=== PATIENT | male | born 1950 | race Caucasian/White ===

== ENCOUNTER 2020-04-27 07:39 | Outpatient (CLI) | payer OTHER, SELFPAY ==
--- NOTE | 2020-04-27 07:49 | USCV_ITS ---
Francis Brown Age: 69 Gender: M : 1950 Exam Date: 04/27/2020 08:12 Ordering Phys: Le Velazquez MD Technologist: Corrie Chanel [place] [facility] [place]: AAA SCREENING HISTORY: Diameter (cm) AP x Transverse x Length Velocity (cm/s) Waveform Prox Aorta: 2.90 x 2.82 x 96.70 Mid Aorta: 2.24 x 2.44 x 63.60 Distal Aorta: 3.49 x 3.25 x 8.09 95.00 Right Iliac Prox: 1.42 x 1.40 x 66.10 Left Iliac Prox: 1.15 x 1.17 x 70.70 Stent Prox Landing x x Aneurysmal Sac Max x x Lt Lat Sac Dim Rt Lat Sac Dim Stent Dist Landing x x Right Iliac Stent x x Left Iliac Stent x x Right Renal Art Left Renal Art FINDINGS: Moderate diffuse plaques in the abdominal aorta Fusiform dilatation of the distal abdominal aorta CONCLUSIONS Small fusiform aneurysm of the distal abdominal aorta, measuring 3.49 x 3.25 cm. Moderate diffuse plaques in the abdominal aorta. No significant arterial obstruction in the proximal common iliac arteries Slight ectasia of the proximal right common iliac artery No previous studies are available for comparison Dr Aspen Nicole MD [facility] (Electronically Signed) Final Date: 28 April 2020 06:11 S
== END 2020-04-27 07:40 | disposition home or self-care (01) ==
PROVIDERS: PCP Family Medicine; Visit Provider Family Medicine
DX: Z13.6 Encounter for screening for cardiovascular disorders (principal); I71.4 Abdominal aortic aneurysm, without rupture
CPT/HCPCS: 76706

== ENCOUNTER 2020-08-23 09:50 | Outpatient (CLI) | payer OTHER, SELFPAY ==
--- NOTE | 2020-08-23 10:15 | USCV_ITS ---
Francis Brown Age: 69 Gender: M : 1950 Exam Date: 08/23/2020 10:20 Ordering Phys: Laly Fisher MD ([email or web address]) Technologist: Sarah Maynard [place] [facility] [place]ication: DIZZINESS AND GIDDINESS BP: 132 / 78 HR: 49 Rhythm: Sinus Technical Quality: Technically difficult study MEASUREMENTS (Male / Female) Normal Values 2D ECHO LV Diastolic Diameter PLAX 3.8 cm 4.2 - 5.9 / 3.9 - 5.3 cm LV Systolic Diameter PLAX 2.6 cm IVS Diastolic Thickness 1.9 cm 0.6 - 1.0 / 0.6 - 0.9 cm IVS Systolic Thickness 2.0 cm LVPW Diastolic Thickness 1.6 cm 0.6 - 1.0 / 0.6 - 0.9 cm LVPW Systolic Thickness 2.0 cm RV Chamber Size 4.1 cm LVOT Diameter 2.0 cm LV Ejection Fraction 2D Teich 54.4 % LV Ejection Fraction MOD 2C 70.4 % LV Ejection Fraction 2C AL 69.6 % LA Diameter 3.5 cm LA Width 3.5 cm LA Height 4.4 cm RA Width 2.9 cm RA Height 4.8 cm Aorta at Sinotubular Diameter 2.5 cm M-MODE Aortic Annulus Diameter 2.6 cm LA Ao Ratio MM 1.5 MV E Point Septal Separation 0.2 cm DOPPLER AV Peak Velocity 217.0 cm/s LVOT Peak Velocity 206.0 cm/s AV Area Cont Eq vti 2.9 cm squared AV Area Cont Eq pk 3.0 cm squared MV Area PHT 3.5 cm squared Mitral E to A Ratio 0.7 MV E' Velocity 28.0 cm/s Mitral E to MV E' Ratio 4.6 Mitral E to LV E' Lateral Ratio 4.6 Mitral E to LV E' Septal Ratio 4.5 TR Peak Velocity 216.0 cm/s TR Peak Gradient 18.7 mmHg TV Peak E Velocity 43.0 cm/s Right Atrial Pressure 3.0 mmHg Pulmonary Artery Systolic Pressu 21.7 mmHg PV Peak Velocity 164.0 cm/s RV Acceleration Time 0.1 s RV Ejection Time 0.3 s RV AcT/ET 0.4 FINDINGS Left Ventricle Normal left ventricular cavity size. Increased left ventricular wall thickness. Moderate left ventricular hypertrophy. Normal left ventricular systolic function. Left ventricular ejection fraction is estimated at 70-75 %. No regional wall motion abnormalities. Grade I diastolic dysfunction (abnormal relaxation filling pattern), normal to mildly elevated filling pressures. Right Ventricle Normal right ventricular size and systolic function. Right ventricular systolic pressure 21.7 mmHg. Right Atrium Normal right atrial size. Left Atrium Mildly increased left atrial size. Mitral Valve Thickened mitral valve. No mitral valve stenosis. Trace mitral valve regurgitation. Aortic Valve Aortic valve not well visualized. Probably trileaflet aortic valve. Flow acceleration noted in left ventricular outflow tract. Peak velocity through left ventricle outflow tract at rest of 2.2 m/s and peak gradient of 20 mmHg. No aortic valve regurgitation. Tricuspid Valve Structurally normal tricuspid valve. Trace tricuspid valve regurgitation. Pulmonic Valve Pulmonic valve not well visualized. Structurally normal pulmonic valve. No pulmonary valve stenosis. Trace pulmonary valve regurgitation. Pericardium No pericardial effusion. Aorta Normal size aortic root and proximal ascending aorta. CONCLUSIONS 1. Normal left ventricular cavity size. Moderate concentric left ventricular hypertrophy. Normal left ventricular systolic function. Left ventricular ejection fraction is estimated at 70- 75 %. No regional wall motion abnormalities. Grade I diastolic dysfunction (abnormal relaxation filling pattern), normal to mildly elevated filling pressures. 2. Normal right ventricular size and systolic function. 3. Pulmonary artery pressure estimated at 22 mmHg. 4. Flow acceleration noted in left ventricular outflow tract. Peak velocity through left ventricle outflow tract at rest of 2.2 m/s and peak gradient of 20 mmHg. 5. No prior similar studies to compare. Laly Fisher MD (Electronically Signed) Final Date: 31 August 2020 10:01 S
== END 2020-08-23 09:51 | disposition home or self-care (01) ==
PROVIDERS: PCP Family Medicine; Visit Provider Internal Medicine Cardiovascular Disease
DX: I51.7 Cardiomegaly (principal); R42 Dizziness and giddiness
CPT/HCPCS: 93306

== ENCOUNTER → 2021-05-18 10:08 | Outpatient (BNVA) | payer OTHER, SELFPAY | PROVIDERS: PCP Family Medicine; Referring Provider Internal Medicine Cardiovascular Disease; Visit Provider Internal Medicine Cardiovascular Disease | DX: Z20.822 Contact with and (suspected) exposure to COVID-19 (principal) | CPT/HCPCS: 99999 ==

== ENCOUNTER 2021-05-18 10:24 | Outpatient (CLI) | payer OTHER, SELFPAY ==
[2021-05-18 10:43] LABS: Basophils % 0.5 %; Eosinophils # 0.2 10^3/uL (0.0-0.8); Eosinophils % 2.3 %; Hematocrit 44.6 % (42.0-52.0); Lymphocytes # 2.4 10^3/uL (0.8-4.8); Lymphocytes % 37.2 %; Mean Corpuscular HGB Conc 33.6 g/dL (30.0-36.0); Mean Corpuscular Volume 86.1 fl (80-94); Monocytes # 0.6 10^3/uL (0.2-0.9); Monocytes % 8.7 %; Neutrophils # 3.31 10^3/uL (1.8-7.7); Neutrophils % 51.1 %; Nucleated Red Blood Cells % 0 %; Platelet Count 192 10^3/cmm (130-400); Red Blood Count 5.18 10^6/uL (4.1-5.3); White Blood Count 6.5 10^3/uL (4.0-10.0)
[2021-05-18 11:03] LABS: Anion Gap 12.3 (5-19); Blood Urea Nitrogen 12 mg/dL (8-23); Calcium 9.3 mg/dL (8.5-10.5); Carbon Dioxide 27 mmol/L (22-29); Chloride 101 mmol/L (98-107); Glomerular Filtration Rate 74.3 mL/min (90-130); Glucose 93 mg/dL (65-115); Osmolality Calculated 281 mOsm/kg (285-295); Potassium 4.3 mmol/L (3.5-5.1); Sodium 136 mmol/L (136-145)
[2021-05-18 11:13] LABS: INR 1.02 (0.83-1.21); Prothrombin Time (Patient) 13.7 Seconds (12.0-15.1)
[2021-05-18 13:24] LABS: Adenovirus Not Detected (NOT DETECT); Chlamydia Pneumoniae Not Detected (NOT DETECT); Coronavirus 229E,HKU1,NL63,OC4 Not Detected (NOT DETECT); Human Metapneumovirus Not Detected (NOT DETECT); Human Rhinovirus/Enterovirus Not Detected (NOT DETECT); Influenza A Not Detected (NOT DETECT); Influenza A H1 Not Detected (NOT DETECT); Influenza A H1-2009 Not Detected (NOT DETECT); Influenza A H3 Not Detected (NOT DETECT); Influenza B Not Detected (NOT DETECT); Mycoplasma Pneumoniae Not Detected (NOT DETECT); Parainfluenza Virus Type 1 Not Detected (NOT DETECT); Parainfluenza Virus Type 2 Not Detected (NOT DETECT); Parainfluenza Virus Type 3 Not Detected (NOT DETECT); Parainfluenza Virus Type 4 Not Detected (NOT DETECT); Respiratory Syncytial Virus A Not Detected (NOT DETECT); Respiratory Syncytial Virus B Not Detected (NOT DETECT); SARS-COV-2 Not Detected (NOT DETECT)
== END 2021-05-18 10:25 | disposition home or self-care (01) ==
LOC: LAB 10:26
PROVIDERS: PCP Family Medicine; Visit Provider Internal Medicine Cardiovascular Disease
DX: I25.10 Atherosclerotic heart disease of native coronary artery without angina pectoris (principal); R06.02 Shortness of breath; R07.9 Chest pain, unspecified
CPT/HCPCS: 80048; 85025; 85610; 87635

== ENCOUNTER 2021-05-23 05:45 | Outpatient (CLI) | payer OTHER, SELFPAY ==
[2021-05-23] VITALS (20 sets, daily range): BP systolic 118–166; BP diastolic 68–92; PULSE 47–63; RESP 5–28; TEMP 36.6–36.7; O2SAT 93–98; BMI 30.7
--- NOTE | 2021-05-23 06:00 | XACV_ITS ---
Exam Room: 2 Ht: 175 cm Wt: 95 kg BSA: 2.18 m2 Gender: Male : 1950 Any Known Allergies: No known allergies Exam Priority: Routine Procedure(s): Procedure Description: Diagnostic procedure Procedure Description: Left Heart Catheterization Procedure Description: Left ventriculography Procedure Description: Coronary Angiography Procedure Description: Pressure Wire Diagnostic Cath Status: Elective Diagnostic Findings * 70-year-old man with past medical history of coronary artery disease with multiple stents, hypertension, hyperlipidemia and small distal abdominal aortic aneurysm. He was admitted with ST elevation inferolaterally in December 2021 and underwent PCI to distal RCA. He was also noted to have residual high-grade stenosis of mid LAD distal to previously placed stent with plan for staged intervention. Patient continues to have exertional dyspnea and hence decision was made to proceed with cardiac catheterization.. * Normal left main. Distal left main with mild 30% stenosis. * Small to medium caliber circumflex artery with 3 obtuse marginal branches. Mild coronary artery disease in mid circumflex. * LAD is small to medium caliber vessel with 2 diagonals. * P * atent proximal left anterior descending artery stent. Just distal to the stent in mid LAD there short segment 60% stenosis. Distal LAD is a small vessel. EL-3 flow. * Large caliber dominant right coronary artery. Minor irregularity noted in distal segment of stent placed in proximal RCA. Patent distal RCA stent. * Case was discussed and images were reviewed with Dr. Hampton. Decision was made to proceed with iFR. PCI Status: Elective Interventional Findings * IFR 0.97. Conclusions 1. Cardiac Catheterization study revealed patent proximal RCA, distal RCA and proximal to mid LAD stents. 2. Mid LAD with moderate 60% stenosis not significant by iFR (0.95). 3. Normal left ventricle systolic function. Ejection fraction estimated at 55%. Recommendations * Statin and aspirin 81mg lifelong, if tolerated. * Risk factor modification for secondary prevention. Ventriculography Ejection Fraction: 55.0 % LV EDP: 8 mmHg Left Ventriculography Findings: * Normal left ventricular systolic function. * Left ventriculogram was performed in [place] view. * EF 55 %, estimated. Pressures Phase:Rest AO : 152 / 73 ( 102 ) @ 8:43:00 AM 130 / 79 ( 103 ) @ 8:46:00 AM 136 / 73 ( 95 ) @ 8:52:00 AM 119 / 73 ( 94 ) @ 9:01:00 AM 139 / 53 ( 88 ) @ 9:14:00 AM 138 / 49 ( 88 ) @ 9:14:00 AM 143 / 71 ( 99 ) @ 9:21:00 AM LV : 142 / -3 / 5 @ 9:13:00 AM 140 / 0 / 8 @ 9:14:00 AM 143 / 1 / 9 @ 9:14:00 AM Hemodynamic Findings LVEDP is 8 mmHg. No aortic valve gradient. Valves Phase:DefaultPhase AV : 4.0 @ 9:36:48 AM 4.0 @ 9:36:48 AM AV Mean Gradient: 5.0 @ 9:36:48 AM 5.0 @ 9:36:48 AM Clinical Evaluation EBL: 5mL-10mL Procedural Details Pre-Procedure Time Out. Identified patient by full name and date of as verbalized by the patient/guarantor. Does the consent match the physician's order: Yes. Accurate & Complete Informed Consent: Yes. Inpatient/Outpatient History & Physical on Chart: Yes. If H&P is completed, is and addenduem needed: Yes; If yes, is the addendum complete: Yes. Visualize and Verify Site with Patient/Guarantor: N/A. Relevant Radiology Images available: Yes. Pre-op teaching completed and patient verbalized understanding. The risks, benefits, and alternatives of sedation and/or procedure were discussed by physician. The patient agrees to continue. Procedure started. [facility] Clinical Fraility Score: 4: Vulnerable. Material Requirements Planning Manager Indications: Worsening Angina. Chest Pain Symptom Assessment: Typical Angina Symptoms. Correct patient, site and procedure confirmed by cath team. Current diagnosis: Chest Pain. PERRLA. Strong, equal hand algebra tutor bilaterally. Lungs clear x 5 lobes. IV Site on Arrival: 22 gauge in the left anticubital. IV Fluids: 0.9% NaCl at KVO. 0 mL infused prior to oil field laborer. Pre Procedural Pulses: right dorsalis pedis was 1+. Pre Procedural Pulses: left dorsalis pedis was 2+. Pre Procedural Pulses: bilateral posterior tibial was 2+. Pre Procedural Pulses: right radial was 3+. Oxygen started at 2liters/min via nasal canula. right groin was prepped with chloroprep then draped in the usual sterile fashion. right radial was prepped with chloroprep then draped in the usual sterile fashion. Baseline sample Acquired. HR: 43 BPM. Physician arrived. Physician scrubbed in. Immediate Pre-Procedure Time Out. Correct Patient: Yes; Correct Procedure: Yes; Correct Site: Yes; Correct Patient Position: Yes; Correct Supplies: Yes; Dried Flammable Prep: Yes; Blood Products Available: N/A;. Lidocaine 1% infiltrated to the right groin. Arterial access obtained with micropuncture set. A 5 mongolian JL4 catheter in over wire. Multiple views taken of left coronary artery. Catheter removed over the standard wire. A 5 mongolian JR4 catheter in over wire. Catheter removed over the standard wire. A 5 mongolian 3DRC catheter in over wire. Multiple views taken of right coronary artery. Physician review of cine films. Catheter removed over the standard wire. A 5 mongolian Angled Pig catheter in over wire. EDP Sample taken: LV 142/-4,5; HR: 54 BPM; SpO2: 98%. LV gram performed in [place] @ 10 mL/second for a total of 30 mL. EDP Sample taken: LV 140/0,8; HR: 50 BPM; SpO2: 98%. Pullback taken: LV 143/1,9; AO 139/53(88); Mean: 5mmHg, Peak to Peak: 4mmHg, SEP: 18sec/min; HR: 50 BPM; SpO2: 97%. Catheter removed over the standard wire. Dr. Fisher scrubbed out. scrubbed in to perform intervention. 6 mongolian XB 3 guide catheter was inserted over the wire. IFR guidewire was advanced through the guide catheter to lesion in the mid LAD. IFR results: 0.95. Wire out. Guide catheter out. A Manual Compression was successful obtaining hemostatsis at the Right Femoral artery insertion site. Sheath(s) removed and manual pressure held until hemostasis was achieved. Sterile 4x4 and Op-site applied to the puncture site. No oozing or hematoma noted. Post sheath removal instructions were given and the patient verbalized understanding. Post Procedure: Pulses reassessed and unchanged. PERRLA. Strong, equal hand algebra tutor bilaterally. No VTE prophylaxis required. Medication's Wasted: Heparin = 1000 units. Medication's Wasted: Nitro = 50 mg. Medication's Wasted: Other = Fentanyl 25 mg. Total IV fluids: 86 mL. Contrast type used: Visipaque 320 mgI/mL, 500 mL bottle. Complications: None. Estimated blood loss: 5mL-10mL. Responsiveness - Normal response to verbal stimuli; alert and oriented, PERRLA. Airway - Unaffected, no intervention required; spontaneous ventilation. Circulation: W/N/L, pulses unchanged. Nausea/Vomiting: No. Procedure completed. Patient transferred by bed to CPRU. Vital chart was stopped. Access Site Site: Right Femoral artery Sheath Size: 6 Fr Hemostasis Method: Manual Compression Hemostasis Success: Successful Procedure Medications Start: 7:29 AM Stop: 7:29 AM Medication: Versed Amount: 1 mg Route: I.V. Start: 7:29 AM Stop: 7:29 AM Medication: Fentanyl Amount: 50 mcg Route: I.V. Start: 7:54 AM Stop: 7:54 AM Medication: Versed 1 mg and Fentanyl 25 mcg Amount: 1 Route: I.V. I, the attending physician, have reviewed and verified all procedure medications. Yes, all medications given per verbal order History/Risk Factors Hypertension: No Dyslipidemia: Yes Peripheral Arterial Disease (PAD): No Myocardial Infarction (RI): Yes Obesity: No Renal Disease: No Prior Interventions PCI: Yes CABG: No Valve Surgery: No Date of PCI: 10/27/2018 Report Signatures Diagnostic Workflow Finalized by Laly Fisher MD on 05/24/2021 05:59 PM Interventional Workflow Finalized by Dr. John Hampton MD on 05/23/2021 08:40 AM
[2021-05-23] MEDS: diphenhydrAMINE 50 mg Capsule PO (06:14)
--- NOTE | 2021-05-23 07:25 | W.PM.OPSFHP ---
Same Day Surgery H&P Indication for Procedure/HPI DATE OF PROCEDURE: May 23, 2021 CHIEF COMPLAINT/INDICATIONFOR SURGICAL PROCEDURE: Exertional dyspnea, CAD PREOP DIAGNOSIS: exertional SOB, CAD PLANNED PROCEDURE: Operation Date: 05/23/21 07:00 Proposed Procedures p Cardiac Catheterization(Left) - Laly Fisher MD 70 yo man accompanied by his of 15 years [place] with PMHx of [place],CAD with h/p stents x 4 with last stent in september 2018 at [place], [facility] (04/28/20: TC-141, TG-186, LDL-78 and HDL-26), chronic active smoker, elevated hbA1C (6.6) and small fusiform distal abdominal AA (3.49x 3.25 cm). Last stent in RCA after inferior STEMI in 12/2020 with mLAD lesion with plan for staged procedure. He continues to hav eexertional dyspnea and hence is here for elective LHC. Medications/Allergies* Home Medications Medication Instructions Recorded Confirmed Type aspirin 81 mg tablet,delayed 81 mg PO DAILY 06/24/20 05/20/21 History release cholecalciferol (vitamin D3) 50 50 mcg PO DAILY 06/24/20 05/20/21 History mcg (2,000 unit) tablet clopidogrel 75 mg tablet 75 mg PO DAILY 06/24/20 05/20/21 History omega-3 fatty acids 1,000 mg 1,000 mg PO DAILY 06/24/20 05/20/21 History capsule (Fish Oil Concentrate) rosuvastatin 40 mg tablet 40 mg PO DAILY 06/24/20 05/20/21 History Allergies/Adverse Reactions Allergy/AdvReac Type Severity Reaction Status Date / Time No Known Allergies Allergy Verified 12/16/20 10:22 Current Medications: Current Medications Sodium Chloride (Sodium Chloride 0.9%) 1,000 mls @ 50 mls/hr IV .Q20H ONE Stop: 05/24/21 01:59 Pertinent History/Comorbid Conditions* Medical History (Updated 06/26/20 @ 19:10 by Laly Fisher MD) Abdominal aortic aneurysm Coronary artery disease Hyperlipidemia Surgical History (Updated 06/24/20 @ 13:32 by Laly Fisher MD) History of coronary artery stent placement Family History (Updated 06/24/20 @ 13:15 by Patricia Condon RN) Diabetes Sister Denies family history of CAD (coronary artery disease) Stroke Social History Smoking and tobacco status: former smoker Alcohol intake: current Alcohol intake frequency: holidays/special occasions only Pertinent Exam Findings alert, oriented x 3, clear to auscultation bilaterally, regular rate & rhythm and procedure specific exam findings Recommendations Surgery/Procedure today Coding Level of Care Code Acute Sheet Rock Layer for John Fenton
--- NOTE | 2021-05-23 19:56 | PC.NURSE ---
Discharge Note Patient discharged to home via private vehicle accompanied by . Discharge instructions reviewed with patient and/or technical sales representatives such as ff-up with film waxer as discussed and post angiogram home care instructions. Mobile pharmacy medications and/or prescriptions provided. Belongings/home medications returned.
== END 2021-05-23 16:00 | disposition home or self-care (01) ==
LOC: CCL 12:37 → CSU 13:45
PROVIDERS: Internal Medicine Cardiovascular Disease; PCP Family Medicine; Visit Provider Internal Medicine Cardiovascular Disease
DX: I25.10 Atherosclerotic heart disease of native coronary artery without angina pectoris (principal); Z95.5 Presence of coronary angioplasty implant and graft; I10 Essential (primary) hypertension; E78.5 Hyperlipidemia, unspecified; I25.2 Old myocardial infarction; Z79.82 Long term (current) use of aspirin; Z82.49 Family history of ischemic heart disease and other diseases of the circulatory system; Z87.891 Personal history of nicotine dependence
CPT/HCPCS: 93452; 93458; 93571; C1769; C1887; C1894; J1644; J2250; J3010; J3490; J7030; Q0163; Q9967

== ENCOUNTER → 2021-05-30 13:40 | Outpatient (BNVA) | payer OTHER, SELFPAY | PROVIDERS: PCP Family Medicine; Visit Provider Nurse Practitioner Family | DX: I25.10 Atherosclerotic heart disease of native coronary artery without angina pectoris (principal); I71.4 Abdominal aortic aneurysm, without rupture; Z87.891 Personal history of nicotine dependence | CPT/HCPCS: 36415; 80048; 99214 ==

== ENCOUNTER 2022-12-11 08:11 | Outpatient (CLI) | payer OTHER, SELFPAY ==
--- NOTE | 2022-12-11 08:19 | USCV_ITS ---
Francis Brown Age: 72 Gender: M : 1950 Exam Date: 12/11/2022 08:30 Ordering Phys: Le Velazquez MD Technologist: CT [place] [facility] [place]ication: aaa HISTORY: Diameter (cm) AP x Transverse x Length Velocity (cm/s) Waveform Prox Aorta: x x Mid Aorta: 2.50 x 2.43 x 69.30 Distal Aorta: 3.74 x 3.63 x 105.30 Right Iliac Prox: 1.96 x 1.67 x 65.50 Left Iliac Prox: 2.03 x 1.63 x 63.80 Stent Prox Landing x x Aneurysmal Sac Max x x Lt Lat Sac Dim Rt Lat Sac Dim Stent Dist Landing x x Right Iliac Stent x x Left Iliac Stent x x Right Renal Art Left Renal Art FINDINGS: small aaa CONCLUSIONS distal AAA measuring 3.7 x 3.6cm stable since 2020 Moderate aortic atheromatous disease Normal iliac arteries Shyam Pratt MD (Electronically Signed) Final Date: 11 December 2022 08:48 S
== END 2022-12-11 08:12 | disposition home or self-care (01) ==
LOC: RAD 08:11
PROVIDERS: PCP Family Medicine; Visit Provider Family Medicine
DX: I71.40 Abdominal aortic aneurysm, without rupture, unspecified (principal); I70.0 Atherosclerosis of aorta
CPT/HCPCS: 93978

== ENCOUNTER 2023-02-08 10:59 | Outpatient (CLI) | payer OTHER, SELFPAY ==
--- NOTE | 2023-02-08 11:03 | MR_ITS ---
WS: [id number] MRI LUMBAR SPINE NONCONTRAST TECHNIQUE: Sagittal T1, T2 and STIR imaging. Axial T1 and T2 imaging. CLINICAL INFORMATION: LOW BACK PAIN COMPARISON: None. FINDINGS: Mild lumbar curve. Minimal compression superior endplate L1 with trace edema. Recommend correlation l ow back pain. Slight anterolisthesis L4 on L5. No high-grade central canal stenosis. L1-L2: Mild disc bulging with osteophytic ridging. Slight effacement of ventral thecal sac. Mild face t arthropathy. Mild LEFT foraminal narrowing. L2-L3: Mild facet arthropathy. Spinal canal and foramen are patent. L3-L4: Mild annular bulging. Slight narrowing the LEFT subarticular recess. Moderate facet arthropath y. Mild LEFT foraminal narrowing. L4-L5: Grade 1 anterolisthesis. Mild annular bulging with slight narrowing of the subarticular recess bilaterally RIGHT greater than LEFT. Moderate facet arthropathy. Moderate RIGHT and mild LEFT forami nal narrowing. L5-S1: Mild disc bulging with slight effacement of the ventral thecal sac. RIGHT eccentric osteophyti c ridging with mild RIGHT foraminal narrowing. LEFT foramen is patent. RIGHT renal cyst measures 2.7 cm. Infrarenal abdominal aortic aneurysm measuring 3.5 x 3.6 x 5.7 cm A P by transverse by craniocaudal. Chronic anterior wedging in the midthoracic spine. IMPRESSION: 1. Mild lumbar curve. No high-grade central canal stenosis. 2. Grade 1 anterolisthesis L4 on L5 with slight narrowing of the subarticular recess RIGHT greater t flores LEFT. 3. Moderate RIGHT L4-5 foraminal narrowing impinges the exiting RIGHT L4 nerve root. Mild LEFT L4-5 foraminal narrowing. 4. Small LEFT foraminal protrusion L3-4 with mild LEFT foraminal narrowing. 5. Mild RIGHT L5-S1 foraminal narrowing due to RIGHT eccentric disc osteophyte complex. 6. Minimal compression of the superior endplate L1 with trace edema. 7. Fusiform infrarenal abdominal aortic aneurysm measuring 3.5 x 3.6 x 5.7 cm. This can be further e valuated with CTA or ultrasound.
== END 2023-02-08 11:00 | disposition home or self-care (01) ==
LOC: RAD 10:59
PROVIDERS: PCP Family Medicine; Visit Provider Family Medicine
DX: M47.816 Spondylosis without myelopathy or radiculopathy, lumbar region (principal); M48.061 Spinal stenosis, lumbar region without neurogenic claudication; M51.26 Other intervertebral disc displacement, lumbar region; M25.78 Osteophyte, vertebrae; I71.43 Infrarenal abdominal aortic aneurysm, without rupture
CPT/HCPCS: 72148

== ENCOUNTER → 2023-12-04 09:03 | Outpatient (BNVA) | payer OTHER, SELFPAY | PROVIDERS: PCP Family Medicine; Visit Provider Student in an Organized Health Care Education/Training Program | DX: Z12.11 Encounter for screening for malignant neoplasm of colon (principal) | CPT/HCPCS: 99204 ==

== ENCOUNTER → 2024-06-02 13:29 | Outpatient (BNVA) | payer OTHER, SELFPAY | PROVIDERS: PCP Family Medicine; Visit Provider Internal Medicine Cardiovascular Disease | DX: I25.10 Atherosclerotic heart disease of native coronary artery without angina pectoris (principal); E78.5 Hyperlipidemia, unspecified; I71.40 Abdominal aortic aneurysm, without rupture, unspecified; I16.0 Hypertensive urgency; Z79.01 Long term (current) use of anticoagulants; Z79.82 Long term (current) use of aspirin; F17.200 Nicotine dependence, unspecified, uncomplicated | CPT/HCPCS: 99214 ==